=== PATIENT | male | born 1975 | race Caucasian/White ===

== ENCOUNTER 2018-04-24 01:41 | Outpatient (CLI) | payer OTHER | END 2018-04-24 01:42 | disposition critical access hospital (66) | LOC: EMS 01:41 | PROVIDERS: ATTEND Surgery | DX: R06.02 Shortness of breath (principal); R51 Headache; R11.0 Nausea | CPT/HCPCS: A0425; A0429 ==

== ENCOUNTER 2018-04-24 01:53 | Emergency (ER) | payer OTHER ==
[2018-04-24 02:58] VITALS: BP 123/80
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
== END 2018-04-24 03:21 | disposition home or self-care (01) ==
LOC: ED 01:53
DX: T58.8X1A Toxic effect of carbon monoxide from other source, accidental (unintentional), initial encounter (principal); R51 Headache; R11.0 Nausea
CPT/HCPCS: 82375; 99282; 99285

== ENCOUNTER 2018-05-26 12:05 | Emergency (ER) | payer OTHER ==
[2018-05-26] MEDS ORDERED: SODIUM CHLORIDE 0.9% 1,000 ML IV ONE (12:32)
[2018-05-26] MEDS ORDERED: ONDANSETRON 4 MG/2 ML VIAL IVP STA (12:32)
[2018-05-26 13:08] LABS: BILIRUBIN,URINE NEGATIVE (NEGATIVE); GLUCOSE, URINE (UA) NEGATIVE (NEGATIVE); KETONES,URINE (UA) NEGATIVE (NEGATIVE); LEUKOCYTE ESTERASE, URINE NEGATIVE (NEGATIVE); NITRITE,URINE NEGATIVE (NEGATIVE); OCCULT BLOOD,URINE NEGATIVE (NEGATIVE); PH,URINE 7.5 PH (5.0-7.5); PROTEIN,URINE NEGATIVE (NEGATIVE); UROBILINOGEN,URINE 0.2 (NORMAL) E.U./dL (NORMAL)
[2018-05-26 13:14] LABS: CLARITY,URINE CLEAR (CLEAR)
[2018-05-26 13:22] LABS: BASOPHILS % (AUTO) 0.4 %; EOSINOPHILS % (AUTO) 0.5 %; HGB - HEMOGLOBIN 16.1 g/dL (14.0-18.0); LYMPHOCYTES # (AUTO) 1.6 10^3/uL (1.5-3.5); LYMPHOCYTES % (AUTO) 16.9 %; MEAN CORPUSCULAR HEMOGLOBIN 30.3 pg (27.0-31.0); MEAN CORPUSCULAR HGB CONC 34.9 g/dL (32.0-36.0); MEAN PLATELET VOLUME 10.9 fL (7.4-11.4); MONOCYTES # (AUTO) 0.6 10^3/uL (0.0-1.0); MONOCYTES % (AUTO) 6.3 %; NEUTROPHILS # (AUTO) 7.1 10^3/uL (1.5-6.6); NEUTROPHILS % (AUTO) 75.9 %; PLT - PLATELET COUNT 133 10^3/uL (130-450); RED BLOOD COUNT 5.31 10^6/uL (4.70-6.10); RED CELL DISTRIBUTION WIDTH 13.6 % (12.0-15.0); WHITE BLOOD COUNT 9.3 x10^3/uL (4.8-10.8)
[2018-05-26 13:28] LABS: ALBUMIN 5.1 g/dL (3.2-5.5); ALBUMIN/GLOBULIN RATIO 1.8 (1.0-2.2); BILIRUBIN,TOTAL 0.7 mg/dL (0.2-1.0); CALCIUM 9.8 mg/dL (8.5-10.3); TOTAL PROTEIN 7.9 g/dL (6.7-8.2)
[2018-05-26] MEDS ORDERED: MAG HYDROX/AL HYDROX/SIMETH 30 ML UDC PO STA (13:31)
[2018-05-26] MEDS ORDERED: FAMOTIDINE 20 MG in SODIUM CHLORIDE 0.9% 50 ML IV ONE (13:31)
[2018-05-26] MEDS ORDERED: LIDOCAINE VISCOUS 2% 15 ML UDC MM STA (13:31)
[2018-05-26] MEDS ORDERED: KETOROLAC 15 MG/ML VIAL IVP STA (13:31)
[2018-05-26] MEDS ORDERED: IOPAMIDOL-300 100 ML VIAL ONE (13:38)
[2018-05-26] MEDS ORDERED: IOVERSOL 320 50 ML VIAL ONE (13:39)
[2018-05-26 13:51] LABS: PLATELET ESTIMATE, MANUAL NORMAL (130-450,000) (NORMAL); PLATELET MORPHOLOGY 1+ GIANT PLATELETS (NORMAL); RBC MORPHOLOGY (MULTIPLE) NORMAL APPEARANCE (NORMAL)
--- NOTE | 2018-05-26 15:25 | CT Report ---
Reason: abdominal pain Procedure Date: 05/26/2018 Accession Number: [id number] / [id number] Procedure: CT - Abdomen/Pelvis W/ CPT Code: FULL RESULT: EXAM: CT ABDOMEN AND PELVIS EXAM DATE: 05/26/2018 03:04 PM. CLINICAL HISTORY: Abdominal pain. COMPARISONS: None. TECHNIQUE: Routine helical CT imaging was performed through the abdomen and pelvis. IV contrast: ISOVUE 300 100mL. Enteric contrast: Yes. Reconstructions: Coronal and sagittal. In accordance with CT protocol optimization, one or more of the following dose reduction techniques were utilized for this exam: automated exposure control, adjustment of mA and/or KV based on patient size, or use of iterative reconstructive technique. FINDINGS: Lung Bases: Unremarkable. Liver: Normal contour. No masses. Gallbladder/Bile Ducts: Unremarkable. Spleen: Normal. Pancreas: Normal. Adrenal Glands: Normal. Kidneys: No masses or hydronephrosis. Peritoneal Cavity/Bowel: No free fluid, free air or adenopathy. No masses. There is a focally thickened loop of small bowel about the left mid abdomen - Pelvic Organs: The bladder and visualized pelvic organs appear within normal limits. Vasculature: No aneurysms or other significant abnormality. Bones: No bone lesions. IMPRESSION: Focally thickened loop of small bowel is nonspecific, but correlate clinically for enteritis. RADIA
--- NOTE | 2018-05-26 15:43 | ED Physician Documentation ---
PD HPI ABD PAIN - Stated complaint Stated Complaint: NEAUSEA/STOMACH PX - Chief complaint Chief Complaint: Abd Pain - History obtained from History obtained from: Patient - Additional information Additional information: 43-year-old male with ongoing abdominal pain return to the emergency department for nausea and upper abdominal pain. The patient has been experiencing significant nausea and upper abdominal discomfort. The patient denies pain in his lower abdomen. The patient's pain is been ongoing for the past several weeks. No reports of blood in the stools. No testicular pain or dysuria. S ymptoms are described as moderate. No other associated symptoms. Review of Systems Constitutional: denies: Fever Eyes: denies: Discharge Ears: denies: Ear pain Nose: denies: Congestion Throat: denies: Sore throat Cardiac: denies: Chest pain / pressure Respiratory: denies: Cough GI: reports: Abdominal Pain, Nausea : denies: Dysuria Skin: denies: Rash Musculoskeletal: denies: Neck pain Neurologic: denies: Generalized weakness Psychiatric: denies: Hallucinations Immunocompromised: denies: Chemotherapy PD PAST MEDICAL HISTORY - Past Medical History Past Medical History: Yes GI: GERD Psych: Bipolar disorder - Past Surgical History Past Surgical History: No - Present Medications Home Medications: Ambulatory Orders Medication Instructions Recorded Confirmed Lamotrigine [Lamotrigine ER] 150 mg pe PO DAILY 05/26/18 05/26/18 Metoclopramide [Reglan] 10 mg PO Q6H PRN #30 tablet 05/26/18 Pantoprazole [Protonix] 40 mg PO DAILY #30 tablet 05/26/18 - Allergies Allergies/Adverse Reactions: Allergies Allergy/AdvReac Type Severity Reaction Status Date / Time Penicillins Allergy Hives Verified 04/24/18 02:00 - Social History Does the pt smoke?: No Smoking Status: Never smoker Does the pt drink ETOH?: No Does the pt have substance abuse?: Yes Substance Use and Type: Marijuana - Immunizations Immunizations are current?: No - POLST Patient has POLST: No PD ED PE NORMAL - General General: Alert and oriented X 3, No acute distress - HEENT HEENT: Atraumatic, PERRL, EOMI, Ears normal - Neck Neck: Supple, no meningeal sign - Cardiac Cardiac: RRR, Strong equal pulses - Respiratory Respiratory: No respiratory distress - Abdomen Abdomen: Soft, Non distended. No: Non tender (Upper abdominal tenderness, no rebound or peritoneal signs) - Derm Derm: Normal color - Extremities Extremities: No deformity, No edema - Neuro Neuro: Alert and oriented X 3, Normal speech - Psych Psych: Normal affect Results - Vitals Vitals: Vital Signs - 24 hr 05/26/18 12:25 Temperature 36.5 C Heart Rate 78 Respiratory 16 Rate Blood Pressure 136/100 H O2 Saturation 100 Oxygen O2 Source Room air - Labs Labs: Laboratory Tests 05/26/18 05/26/18 05/26/18 12:57 12:57 12:57 WBC 9.3 RBC 5.31 Hgb 16.1 Hct 46.2 MCV 87.0 MCH 30.3 MCHC 34.9 RDW 13.6 Plt Count 133 MPV 10.9 Neut # (Auto) 7.1 H Lymph # (Auto) 1.6 Loup # (Auto) 0.6 Eos # (Auto) 0.0 Baso # (Auto) 0.0 Absolute Nucleated RBC 0.00 Nucleated RBC % 0.0 Manual Slide Review Indicated Platelet Estimate NORMAL (130-450,000) Platelet Morphology 1+ GIANT PLATELETS RBC Morph Micro Appear NORMAL APPEARANCE Sodium 138 Potassium 3.6 Chloride 97 L Carbon Dioxide 32 Anion Gap 9.0 BUN 13 Creatinine 1.0 Estimated GFR (MDRD) 82 L Glucose 102 H Calcium 9.8 Total Bilirubin 0.7 AST 22 ALT 22 Alkaline Phosphatase 54 Total Protein 7.9 Albumin 5.1 Globulin 2.8 Albumin/Globulin Ratio 1.8 Lipase 48 Urine Color YELLOW Urine Clarity CLEAR Urine pH 7.5 Ur Specific Sellers 1.025 Urine Protein NEGATIVE Urine Glucose (UA) NEGATIVE Urine Ketones NEGATIVE Urine Occult Blood NEGATIVE Urine Nitrite NEGATIVE Urine Bilirubin NEGATIVE Urine Urobilinogen 0.2 (NORMAL) Ur Leukocyte Esterase NEGATIVE Ur Microscopic Review NOT INDICATED Urine Culture Comments NOT INDICATED - Rads (name of study) CT abd/pelvis Radiology: Final report received, See rad report (IMPRESSION: Focally thickened loop of small bowel is nonspecific, but correlate clinically for enteritis.) PD MEDICAL DECISION MAKING - ED course ED course: On reevaluation the patient is resting comfortably and appears to be in no s ignificant distress. The patient's workup does not reveal a clear etiology for the source of his symptoms. The patient has nonspecific finding seen on CT scan. The patient appears appropriate for ongoing outpatient management. I recommended close follow-up with primary care for referral to GI. The patient understands and agrees to plan. I discussed warning signs and recommended returning to the emergency department immediately for any worsening or any concerns. Departure - Departure Disposition: 01 Home, Self Care Clinical Impression: Abdominal pain Qualifiers: Abdominal location: unspecified location Qualified Code(s): R10.9 - Unspecified abdominal pain Condition: Good Instructions: Abdominal Pain, ED Abdominal Pain Unkn Cause Follow-Up: [facility] [Provider Group] [facility] [Provider Group] [facility] [Provider Group] Prescriptions: Metoclopramide [Reglan] 10 mg PO Q6H PRN #30 tablet PRN Reason: Nausea / Vomiting Pantoprazole [Protonix] 40 mg PO DAILY #30 tablet Comments: Please follow-up with primary care. Please ask primary care to arrange for out patient referral to GI for an EGD. Please return to the emergency department immediately for worsening symptoms or any concerns
[2018-05-26] MEDS ORDERED: IOPAMIDOL-300 100 ML VIAL IVP ONE (15:46)
[2018-05-26] MEDS ORDERED: IOPAMIDOL-300 50 ML VIAL PO ONE (15:46)
[2018-05-26] MEDS ORDERED: IOVERSOL 320 50 ML VIAL PO ONE (15:46)
[2018-05-26 15:55] VITALS: BP 121/79
== END 2018-05-26 15:59 | disposition home or self-care (01) ==
LOC: ED 12:05
DX: R10.9 Unspecified abdominal pain (principal); R11.0 Nausea; R93.5 Abnormal findings on diagnostic imaging of other abdominal regions, including retroperitoneum
CPT/HCPCS: 36415; 74177; 80053; 81003; 83690; 85025; 96365; 96375; 99283; A9270; J7040; Q9967; 81001; 87086

== ENCOUNTER 2019-05-06 10:50 | Outpatient (CLI) | payer OTHER ==
[2019-05-06 19:13] LABS: BASOPHILS % (AUTO) 0.4 %; EOSINOPHILS # (AUTO) 0.1 10^3/uL (0.0-0.7); EOSINOPHILS % (AUTO) 1.6 %; HGB - HEMOGLOBIN 15.4 g/dL (14.0-18.0); LYMPHOCYTES # (AUTO) 1.6 10^3/uL (1.5-3.5); LYMPHOCYTES % (AUTO) 31.2 %; MEAN CORPUSCULAR HEMOGLOBIN 29.7 pg (27.0-31.0); MEAN CORPUSCULAR HGB CONC 33.1 g/dL (32.0-36.0); MEAN CORPUSCULAR VOLUME 89.6 fL (80.0-94.0); MEAN PLATELET VOLUME 12.9 fL (7.4-11.4); MONOCYTES # (AUTO) 0.5 10^3/uL (0.0-1.0); MONOCYTES % (AUTO) 9.3 %; NEUTROPHILS # (AUTO) 2.8 10^3/uL (1.5-6.6); NEUTROPHILS % (AUTO) 56.9 %; PLT - PLATELET COUNT 136 10^3/uL (130-450); RED BLOOD COUNT 5.19 10^6/uL (4.70-6.10); RED CELL DISTRIBUTION WIDTH 12.5 % (12.0-15.0)
[2019-05-06 19:34] LABS: HB2 TOTAL 16.1 g/dL; HEMOGLOBIN A1C 0.57 g/dL; HEMOGLOBIN A1C % 5.4 % (4.6-6.2)
[2019-05-06 19:48] LABS: FOLATE 10.58 ng/mL (5.90 - >24.8)
[2019-05-06 19:49] LABS: ALBUMIN 4.5 g/dL (3.2-5.5); ALBUMIN/GLOBULIN RATIO 1.6 (1.0-2.2); ALKALINE PHOSPHATASE 41 IU/L (42-121); ALT ALANINE AMINOTRANSFERASE 33 IU/L (10-60); AST ASPARTATE AMINOTRANSFERASE 28 IU/L (10-42); BILIRUBIN,TOTAL 0.8 mg/dL (0.2-1.0); BUN - BLOOD UREA NITROGEN 12 mg/dL (6-20); CALCIUM 9.6 mg/dL (8.5-10.3); CARBON DIOXIDE - CO2 32 mmol/L (21-32); CHLORIDE 101 mmol/L (101-111); CHOL/HDL RATIO 3.1 (<5.0); CHOLESTEROL 164 mg/dL; CREATININE 1.1 mg/dL (0.6-1.2); GFR - MDRD 73 (>89); GLUCOSE 86 mg/dL (70-100); HDL CHOLESTEROL 53 mg/dL; LDL CHOLESTEROL,CALCULATED 85 mg/dL; LDL/HDL RATIO 1.6 (<3.6); SODIUM 139 mmol/L (135-145); TOTAL PROTEIN 7.3 g/dL (6.7-8.2); VLDL CHOLESTEROL 26 mg/dL
== END 2019-05-06 23:59 | disposition home or self-care (01) ==
LOC: LAB.N 10:50
PROVIDERS: ATTEND Family Medicine
DX: Z13.1 Encounter for screening for diabetes mellitus (principal); G62.9 Polyneuropathy, unspecified; Z12.5 Encounter for screening for malignant neoplasm of prostate
CPT/HCPCS: 36415; 80053; 80061; 82607; 82746; 83036; 83721; 84153; 84443; 85025

== ENCOUNTER 2019-09-25 09:53 | Emergency (ER) | payer OTHER ==
--- NOTE | 2019-09-25 10:24 | XRAY Report ---
Reason: cough Procedure Date: 09/25/2019 Accession Number: [id number] / [id number] Procedure: XR - Chest 2 View X-Ray CPT Code: 66420 Final Report FULL RESULT: EXAM: CHEST RADIOGRAPHY EXAM DATE: 09/25/2019 10:07 AM. CLINICAL HISTORY: Cough. COMPARISON: None. TECHNIQUE: 2 views. FINDINGS: Lungs/Pleura: No focal opacities evident. No pleural effusion. No pneumothorax. Normal volumes. Mediastinum: Heart and mediastinal contours are unremarkable. Other: Degenerative changes of the thoracic spine. IMPRESSION: 1. No acute disease in the chest. RADIA
--- NOTE | 2019-09-25 10:44 | ED Physician Documentation ---
PD HPI URI - Stated complaint Stated Complaint: CHEST PX,SOA - Chief complaint Chief Complaint: Resp - History obtained from History obtained from: Patient - History of Present Illness Timing - onset: How many days ago (5-6) Timing duration: Days Timing details: Gradual onset (initially URI symptoms then more cough, and started feeling pain and pressure in chest with cough the past 1-2 days.), Still present Associated symptoms: Chills, Nasal congestion, Dry cough. No: Fever, Sore throat Contributing factors: COPD / asthma. No: Sick contact, Travel, Immunocompromised Improves by: Rest Similar symptoms before: Diagnosis (allergies) Recently seen: Not recently seen Review of Systems Constitutional: denies: Fever, Chills Nose: reports: Rhinorrhea / runny nose, Congestion Throat: reports: Sore throat Cardiac: reports: Chest pain / pressure. denies: Palpitations, Pedal edema, Calf pain Respiratory: reports: Dyspnea, Cough. denies: Hemoptysis, Wheezing GI: denies: Nausea, Vomiting, Diarrhea Skin: reports: Rash. denies: Lesions PD PAST MEDICAL HISTORY - Past Medical History Cardiovascular: None Respiratory: Asthma Neuro: None Endocrine/Autoimmune: None GI: GERD Psych: Bipolar disorder - Past Surgical History Past Surgical History: No - Present Medications Home Medications: Ambulatory Orders Medication Instructions Recorded Confirmed Lamotrigine [Lamotrigine ER] 150 mg pe PO DAILY 05/26/18 05/26/18 Metoclopramide [Reglan] 10 mg PO Q6H PRN #30 tablet 05/26/18 Pantoprazole [Protonix] 40 mg PO DAILY #30 tablet 05/26/18 Albuterol Sulfate [Albuterol 2 puffs IH QID #1 hfa.aer.ad 09/25/19 Sulfate Hfa] Benzonatate [Tessalon Perle] 100 mg PO TID PRN #20 capsule 09/25/19 Cetirizine [ZyrTEC] 10 mg PO DAILY #30 tablet 09/25/19 dexAMETHasone [Decadron] 4 mg PO DAILY #5 tablet 09/25/19 - Allergies Allergies/Adverse Reactions: Allergies Allergy/AdvReac Type Severity Reaction Status Date / Time Penicillins Allergy Hives Verified 09/25/19 09:57 - Social History Does the pt smoke?: No Smoking Status: Never smoker Does the pt drink ETOH?: No Does the pt have substance abuse?: Yes - Immunizations Immunizations are current?: No - POLST Patient has POLST: No PD ED PE NORMAL - Vitals Vital signs reviewed: Yes - General General: Alert and oriented X 3, No acute distress, Well developed/nourished - HEENT HEENT: Ears normal, Moist mucous membranes, Pharynx benign - Neck Neck: Supple, no meningeal sign, No adenopathy - Cardiac Cardiac: RRR, No murmur - Respiratory Respiratory: Clear bilaterally - Abdomen Abdomen: Soft, Non tender - Derm Derm: Normal color, Warm and dry - Extremities Extremities: No tenderness to palpate, Normal ROM s pain, No edema, No calf tenderness / cord - Neuro Neuro: Alert and oriented X 3, No motor deficit Results - Vitals Vitals: Vital Signs - 24 hr 09/25/19 09/25/19 09:54 12:00 Temperature 36.7 C 36.7 C Heart Rate 67 62 Respiratory 16 18 Rate Blood Pressure 151/84 H 144/85 H O2 Saturation 100 100 Oxygen O2 Source Room air Departure - Departure Disposition: 01 Home, Self Care Clinical Impression: Environmental allergies Upper respiratory infection Qualifiers: URI type: unspecified URI Qualified Code(s): J06.9 - Acute upper respiratory infection, unspecified Condition: Stable Record reviewed to determine appropriate education?: Yes Instructions: ED URI Viral W Wheezing Follow-Up: JIM POLANCO MD [Primary Care Provider] - Prescriptions: Albuterol Sulfate [Albuterol Sulfate Hfa] 2 puffs IH QID #1 hfa.aer.ad Benzonatate [Tessalon Perle] 100 mg PO TID PRN #20 capsule PRN Reason: Cough Cetirizine [ZyrTEC] 10 mg PO DAILY #30 tablet dexAMETHasone [Decadron] 4 mg PO DAILY #5 tablet Comments: Cetirizine daily for allergies (long-acting antihistamine). Use albuterol inhaler 2 puffs 4 times a day for the next several days to week and then as needed for wheeziness, tightness in the chest or prior to exercise. Decadron steroid for inflammation of the airways daily for 5 more days. This is presumably a combination of some environmental allergies and a viral head and chest cold. No signs of pneumonia on your x-ray. Your heart rhythm appears normal. Use Tylenol if needed for pains or fevers. Recheck if not improved well over the next few days. Discharge Date/Time: 09/25/19 12:03
[2019-09-25] MEDS ORDERED: ACETAMINOPHEN 325 MG TABLET PO STA (11:50)
[2019-09-25] MEDS ORDERED: BENZONATATE 100 MG CAPSULE PO STA (11:50)
[2019-09-25] MEDS ORDERED: CHERRY SYRUP 10 ML UDC PO ONE (11:50)
[2019-09-25] MEDS ORDERED: DEXAMETHASONE 10 MG/ML VIAL PO STA (11:50)
[2019-09-25 12:01] VITALS: BP 144/85
== END 2019-09-25 12:03 | disposition home or self-care (01) ==
LOC: ED 09:53
DX: J06.9 Acute upper respiratory infection, unspecified (principal); T78.49XA Other allergy, initial encounter
CPT/HCPCS: 71046; 99284; A9270

== ENCOUNTER 2020-02-01 14:25 | Outpatient (CLI) | payer OTHER ==
--- NOTE | 2020-02-01 18:10 | XRAY Report ---
Reason: COUGH Procedure Date: 02/01/2020 Accession Number: [id number] / [id number] Procedure: WCP - Chest 2 View X-Ray CPT Code: 62765 Final Report FULL RESULT: PROCEDURE: Chest 2 View X-Ray INDICATIONS: COUGH TECHNIQUE: 2 view(s) of the chest. COMPARISON: FINDINGS: Surgical changes and devices: None. Lungs and pleura: No pleural effusions or pneumothorax. Lungs are clear. Mediastinum: Mediastinal contours are normal. Heart size is normal. Bones and chest wall: No suspicious bony abnormalities. Soft tissues appear unremarkable. IMPRESSION: No acute cardiopulmonary disease process. Reviewed by: Mandie Baxter MD, PhD on 02/01/2020 6:09 PM PDT Approved by: Mandie Baxter MD, PhD on 02/01/2020 6:09 PM PDT Station ID: [id number]
== END 2020-02-01 23:59 | disposition home or self-care (01) ==
LOC: DI.WCP 14:25
PROVIDERS: ATTEND Physician Assistant
DX: R05 Cough (principal); Z20.828 Contact with and (suspected) exposure to other viral communicable diseases
CPT/HCPCS: 71046

== ENCOUNTER 2020-02-01 15:00 | Outpatient (CLI) | payer OTHER | END 2020-02-01 23:59 | disposition home or self-care (01) | LOC: LAB.R 15:00 | PROVIDERS: ATTEND Physician Assistant | DX: R05 Cough (principal); Z20.828 Contact with and (suspected) exposure to other viral communicable diseases ==

== ENCOUNTER 2020-04-18 12:57 | Outpatient (CLI) | payer OTHER ==
--- NOTE | 2020-04-18 14:00 | XRAY Report ---
PROCEDURE: Shoulder 2 View LT INDICATIONS: SHOULDER JOINT PAIN, LEFT TECHNIQUE: 2 views of the shoulder were acquired. COMPARISON: None. FINDINGS: Bones: No fractures or dislocations. No suspicious bony lesions. Visualized ribs appear intact. Soft tissues: No suspicious soft tissue calcifications. IMPRESSION: No acute findings. Reviewed by: Fabien Chester MD on 04/18/2020 1:59 PM PDT Approved by: Fabien Chester MD on 04/18/2020 1:59 PM PDT Station ID: [id number]
== END 2020-04-18 12:58 | disposition home or self-care (01) ==
LOC: DI 12:57
PROVIDERS: ATTEND Family Medicine
DX: M25.512 Pain in left shoulder (principal)

== ENCOUNTER 2020-09-23 08:00 | Outpatient (CLI) | payer OTHER ==
[2020-09-23 12:07] LABS: BASOPHILS % (AUTO) 0.6 %; EOSINOPHILS # (AUTO) 0.1 10^3/uL (0.0-0.7); EOSINOPHILS % (AUTO) 1.2 %; HCT - HEMATOCRIT 46.1 % (42.0-52.0); HGB - HEMOGLOBIN 15.7 g/dL (14.0-18.0); LYMPHOCYTES # (AUTO) 1.7 10^3/uL (1.5-3.5); LYMPHOCYTES % (AUTO) 35.1 %; MEAN CORPUSCULAR HEMOGLOBIN 29.7 pg (27.0-31.0); MEAN CORPUSCULAR HGB CONC 34.1 g/dL (32.0-36.0); MEAN CORPUSCULAR VOLUME 87.1 fL (80.0-94.0); MEAN PLATELET VOLUME 13.4 fL (7.4-11.4); MONOCYTES # (AUTO) 0.4 10^3/uL (0.0-1.0); MONOCYTES % (AUTO) 9.1 %; NEUTROPHILS # (AUTO) 2.6 10^3/uL (1.5-6.6); NEUTROPHILS % (AUTO) 53.8 %; PLT - PLATELET COUNT 132 10^3/uL (130-450); RED BLOOD COUNT 5.29 10^6/uL (4.70-6.10); RED CELL DISTRIBUTION WIDTH 12.2 % (12.0-15.0); WHITE BLOOD COUNT 4.8 x10^3/uL (4.8-10.8)
[2020-09-23 12:56] LABS: ALBUMIN/GLOBULIN RATIO 1.7 (1.0-2.2); ALKALINE PHOSPHATASE 38 IU/L (42-121); ALT ALANINE AMINOTRANSFERASE 28 IU/L (10-60); AST ASPARTATE AMINOTRANSFERASE 23 IU/L (10-42); BILIRUBIN,TOTAL 0.9 mg/dL (0.2-1.0); BUN - BLOOD UREA NITROGEN 17 mg/dL (6-20); CALCIUM 10.2 mg/dL (8.5-10.3); CARBON DIOXIDE - CO2 25 mmol/L (21-32); CHLORIDE 101 mmol/L (101-111); CHOL/HDL RATIO 3.2 (<5.0); CHOLESTEROL 176 mg/dL; GFR - MDRD 81 (>89); GLUCOSE 98 mg/dL (70-100); HDL CHOLESTEROL 55 mg/dL; LDL CHOLESTEROL,CALCULATED 101 mg/dL; LDL/HDL RATIO 1.8 (<3.6); SODIUM 136 mmol/L (135-145); TRIGLYCERIDES 100 mg/dL; VLDL CHOLESTEROL 20 mg/dL
[2020-09-23 13:02] LABS: THYROID STIMULATING HORMONE 1.47 uIU/mL (0.34-5.60)
== END 2020-09-23 23:59 | disposition home or self-care (01) ==
LOC: LAB.WCP 08:00
PROVIDERS: ATTEND Physician Assistant Medical
DX: Z00.00 Encounter for general adult medical examination without abnormal findings (principal); Z12.5 Encounter for screening for malignant neoplasm of prostate
CPT/HCPCS: 36415; 80053; 80061; 83721; 84153; 84443; 85025